=== PATIENT | female | born 1960 | race Caucasian/White ===

== ENCOUNTER 2017-07-26 15:17 | Emergency (ER) | payer OTHER ==
[2017-07-26 16:01] VITALS: BP 124/82
[2017-07-26] MEDS ORDERED: Albuterol HFA INHALER* 8 gm MDI INH ONE (17:51)
[2017-07-26] MEDS ORDERED: Amoxicillin/Clavulanate TAB* 875 MG PO ONE (17:51)
--- NOTE | 2017-07-26 17:51 | UC ---
UC General HPI - HPI Summary HPI Summary: ill for 2 weeks. began with head congestion and throat irritation. pt assumed allergies. improved a little but is now much worse with green nasal d/c, thorat irritation and cough with congestion. also feels feverish - History of Current Complaint Chief Complaint: UCRespiratory Stated Complaint: COUGH,THROAT COMPLAINT Time Seen by Provider: 07/26/17 17:45 Hx Obtained From: Patient Onset/Duration: Gradual Onset Timing: Constant Pain Intensity: 6 Aggravating: Nothing and no relief with mucinex Associated Signs & Symptoms: Positive: Cough, Fever. Negative: Headache - Allergy/Home Medications Allergies/Adverse Reactions: Allergies Allergy/AdvReac Type Severity Reaction Status Date / Time No Known Allergies Allergy Verified 07/26/17 15:54 Home Medications: Home Medications Levothyroxine TAB* [Synthroid TAB*] 100 mcg PO DAILY 07/26/17 [History Confirmed 07/26/17] PMH/Surg Hx/FS Hx/Imm Hx Endocrine History: Thyroid Disease - Surgical History Surgical History: None - Family History Known Family History: Positive: Cardiac Disease - Social History Occupation: Employed Full-time Lives: With Family Alcohol Use: Daily Alcohol Amount: 1 drink/night Substance Use Type: None Smoking Status (MU): Former Smoker - 1ppd x years, quit 12 years ago Type: Cigarettes - Immunization History Most Recent Tetanus Shot: UTD Vaccination Up to Date: Yes Review of Systems Constitutional: Fever Skin: Negative Eyes: Negative ENT: Sore Throat, Nasal Discharge, Sinus Congestion, Sinus Pain/Tenderness Respiratory: Cough Cardiovascular: Negative Gastrointestinal: Negative Genitourinary: Negative Motor: Negative Neurovascular: Negative Musculoskeletal: Other: - chest sore with coug Neurological: Negative Psychological: Negative Is Patient Immunocompromised?: No All Other Systems Reviewed And Are Negative: Yes Physical Exam Triage Information Reviewed: Yes Appearance: Well-Appearing Vital Signs: Initial Vital Signs Temp 98.5 F 07/26/17 15:53 Pulse 71 07/26/17 15:53 Resp 20 07/26/17 15:53 BP 124/82 07/26/17 15:53 Pulse Ox 100 07/26/17 15:53 Vital Signs Reviewed: Yes Eyes: Positive: Conjunctiva Clear ENT: Positive: Pharynx normal, Nasal congestion, TMs normal, Sinus tenderness. Negative: Nasal drainage Neck: Positive: Supple, Nontender, No Lymphadenopathy Respiratory: Positive: Lungs clear, No respiratory distress, Decreased breath sounds, Other: - Congested cough Cardiovascular: Positive: RRR, No Murmur Abdomen Description: Positive: Nontender, No Organomegaly, Soft Bowel Sounds: Positive: Present Musculoskeletal: Positive: ROM Intact Neurological: Positive: Alert Psychological: Positive: Age Appropriate Behavior Skin Exam: Normal Course/Dx - Course Course Of Treatment: ill x 2 weeks with worsening. will cover for presumptive bacterial infection. - Differential Dx - Multi-Symptom Provider Diagnoses: sinusitis. bronchitis Discharge - Sign-Out/Discharge Documenting (check all that apply): Discharge/Admit/Transfer - Discharge Plan Condition: Stable Disposition: HOME Prescriptions: Amoxicillin/Clavulanate TAB* [Augmentin TAB 875*] 875 mg PO BID #20 tab Patient Education Materials: Sinusitis (ED), Acute Bronchitis (ED) Referrals: JACOBO King [Primary Care Provider] - 7 Days Additional Instructions: USE THE ALBUTEROL INHALER 2PUFFS EVERY 6 HOURS - Billing Disposition and Condition Condition: STABLE Disposition: HOME
== END 2017-07-26 18:07 | disposition home or self-care (01) ==
LOC: UCCORT 15:17
DX: J32.9 Chronic sinusitis, unspecified (principal); J40 Bronchitis, not specified as acute or chronic; E07.9 Disorder of thyroid, unspecified; Z87.891 Personal history of nicotine dependence
CPT/HCPCS: 99212; A9270-GY; G0463